=== PATIENT | female | born 1950 ===

== ENCOUNTER 2018-10-04 07:46 | Emergency (ER) | payer OTHER ==
[~2018-10-04] VITALS: Ht 185.4 cm; Wt 63.5 kg
[~2018-10-04 07:46] MED LIST: ENALAPRIL MALEA20 MG; SIMVASTATIN20 MG; ZOLOFT100 MG
[2018-10-04] MEDS ORDERED: RESTORIL15 M1 PO (07:56)
[2018-10-04] MEDS ORDERED: ASPIRIN81 MG PO (07:57)
[2018-10-04] MEDS ORDERED: DIAZEPAM5 MG PO (08:07)
== END 2018-10-04 11:41 | disposition home or self-care (01) ==
LOC: ER 07:46
DX: R53.81 Other malaise (principal); R63.4 Abnormal weight loss; F41.8 Other specified anxiety disorders; F32.9 Major depressive disorder, single episode, unspecified

== ENCOUNTER 2023-07-13 02:13 | Emergency (ER) | payer OTHER ==
[~2023-07-13] VITALS: Ht 182.9 cm; Wt 83.9 kg
[~2023-07-13 02:13] MED LIST changes: +ASPIRIN81 MG PO; +DIAZEPAM5 MG PO; +RESTORIL15 M1 PO
== END 2023-07-13 07:28 | disposition home or self-care (01) ==
LOC: ER 02:13
DX: K59.01 Slow transit constipation (principal); R10.13 Epigastric pain; R10.9 Unspecified abdominal pain; Z88.5 Allergy status to narcotic agent
CPT/HCPCS: 36415; 74022; 96365; 99283; J1885; J3490